=== PATIENT | male | born 1960 | race African-American/Black ===

== ENCOUNTER 2017-12-17 15:32 | Emergency (ER) | payer MEDICAID ==
[~2017-12-17] VITALS: Ht 172.7 cm; Wt 68.0 kg
[2017-12-17 15:50] VITALS: BP 170/88
[2017-12-17] MEDS ORDERED: METF500T4 PO (15:55)
[2017-12-17] MEDS ORDERED: ATOR10TA69 PO (15:55)
[2017-12-17] MEDS ORDERED: LISI2.5T47 PO (15:55)
[2017-12-17] MEDS ORDERED: GABA-529 PO (15:55)
[2017-12-17] MEDS ORDERED: GLIP5TAB12 PO (15:55)
== END 2017-12-17 17:26 | disposition home or self-care (01) ==
LOC: ER 16:06
DX: S02.5XXA Fracture of tooth (traumatic), initial encounter for closed fracture (principal); K02.9 Dental caries, unspecified; I10 Essential (primary) hypertension; E11.9 Type 2 diabetes mellitus without complications; Z79.84 Long term (current) use of oral hypoglycemic drugs; X58.XXXA Exposure to other specified factors, initial encounter; Y93.89 Activity, other specified; Y92.89 Other specified places as the place of occurrence of the external cause; Y99.8 Other external cause status
CPT/HCPCS: 99283